=== PATIENT | female | born 1985 | race Caucasian/White ===

== ENCOUNTER 2018-05-31 15:23 | Inpatient (IN) | payer OTHER ==
[2018-05-31] MEDS: LACTATED RINGER'S 1,000 ML IV ×2 (15:45→23:45)
[2018-05-31] MEDS ORDERED: OXYTOCIN 30 UNITS/LR 500 ML IV ×2 (16:00)
[2018-05-31] MEDS ORDERED: METHYLERGONOVINE 0.2 MG INJ IM (16:00)
[2018-05-31] MEDS ORDERED: MISOPROSTOL 200 MCG TAB PR (16:00)
[2018-05-31] MEDS: CEFAZOLIN 2 GM/50 ML (PMX) 50 ML IVPB (16:00)
[2018-05-31] MEDS ORDERED: CARBOPROST 250 MCG INJ IM (16:00)
[2018-05-31 17:48] LABS: ADD MAN DIFF? NO
[2018-05-31 17:51] LABS: BASOPHILS % 0.2 % (0.0-2.0); EOSINOPHILS # 0.1 10^3/ul (0.0-0.5); EOSINOPHILS % 0.4 % (0.0-7.0); HEMATOCRIT 38.3 % (37.0-47.0); HEMOGLOBIN 12.7 g/dl (12.0-16.0); LYMPHOCYTES # 1.4 10^3/ul (0.8-2.9); LYMPHOCYTES % 10.9 % (15.0-51.0); MEAN CORPUSCULAR HEMOGLOBIN 30.2 pg (29.0-33.0); MEAN CORPUSCULAR HGB CONC 33.2 g/dl (32.0-37.0); MEAN CORPUSCULAR VOLUME 91.2 fl (82.0-101.0); MEAN PLATELET VOLUME 11.6 fl (7.4-10.4); MONOCYTE # 0.9 10^3/ul (0.3-0.9); MONOCYTES % 7.2 % (0.0-11.0); NEUTROPHIL # 10.5 10^3/ul (1.6-7.5); NEUTROPHILS % 80.8 % (39.0-77.0); PLATELET COUNT 222 10^3/UL (140-415); RED CELL DISTRIBUTION WIDTH 14.3 % (11.5-14.5)
[2018-05-31 18:10] LABS: INR 0.87; PARTIAL THROMBOPLASTIN TIME 26.4 Sec (23.0-35.0); PROTIME 11.9 Sec (11.9-14.9); PT RATIO 0.9
[2018-05-31 18:59] LABS: HEPATITIS B SURFACE ANTIGEN NEGATIVE (NEGATIVE)
[2018-05-31] MEDS ORDERED: HYDROmorphONE 0.5 MG/0.5 ML SYG IV ×2 (19:00)
[2018-05-31] MEDS ORDERED: ONDANSETRON 4 MG INJ IV ×2 (19:00)
[2018-05-31] MEDS ORDERED: KETOROLAC 30 MG INJ IV (19:00)
[2018-05-31] MEDS ORDERED: NALOXONE (0.4 MG/ML) INJ IV (19:00)
[2018-05-31] MEDS ORDERED: FENTAnyl 50 MCG/ML VIAL IV ×2 (19:00)
[2018-05-31] MEDS ORDERED: ZOLPIDEM 5 MG TAB PO (19:00)
[2018-05-31] MEDS ORDERED: HYDROmorphONE 1 MG/5 ML IV SYRINGE IV ×3 (19:00)
[2018-05-31] MEDS ORDERED: DIPHENHYDRAMINE 50 MG INJ IV (19:00)
[2018-05-31] MEDS ORDERED: morphine SULFATE/PF (10 MG/10 ML) INJ (20:07)
[2018-05-31] MEDS ORDERED: OXYTOCIN 10 UNIT INJ (20:08)
[2018-05-31] MEDS ORDERED: BUPIVACAINE 0.75%/DEXT (SPINAL) 2 ML INJ (20:11)
[2018-05-31 20:49] LABS: AMPHETAMINE/METHAMPHETAMINE Negative (NEGATIVE); BARBITURATES Negative (NEGATIVE); BENZODIAZEPINES Negative (NEGATIVE); CANNABINOIDS Negative (NEGATIVE); COCAINE Negative (NEGATIVE); OPIATES Negative (NEGATIVE)
[2018-05-31] MEDS: FAMOTIDINE 20 MG INJ IV (21:10)
[2018-05-31] MEDS: ONDANSETRON 4 MG INJ IV (21:11)
[2018-05-31] MEDS: METOCLOPRAMIDE 10 MG INJ IV (21:11)
[2018-06-01] MEDS ORDERED: METHYLERGONOVINE 0.2 MG INJ IM (01:30)
[2018-06-01] MEDS ORDERED: OXYTOCIN 30 UNITS/LR 500 ML IV (01:30)
[2018-06-01] MEDS ORDERED: NACL 0.9% 3 ML SYG IV (01:30)
[2018-06-01] MEDS ORDERED: MISOPROSTOL 200 MCG TAB PR (01:30)
[2018-06-01] MEDS ORDERED: CEFAZOLIN 2 GM/50 ML (PMX) 50 ML IVPB (01:30)
[2018-06-01] MEDS ORDERED: CARBOPROST 250 MCG INJ IM (01:30)
[2018-06-01] MEDS: OXYTOCIN 30 UNITS/LR 500 ML IV ×2 (01:42→06:00)
[2018-06-01] MEDS: KETOROLAC 30 MG INJ IV ×2 (03:59→23:47)
[2018-06-01] MEDS: SENNA/DOCUSATE NA (8.6MG/50MG) TAB PO ×2 (09:00→22:02)
[2018-06-01] MEDS: DIPHENHYDRAMINE 50 MG INJ IV (10:06)
[2018-06-01] MEDS: CEFAZOLIN 2 GM/50 ML (PMX) 50 ML IVPB ×3 (10:06→23:05)
[2018-06-01] MEDS: LACTATED RINGER'S 1,000 ML IV ×3 (15:45→23:05)
[2018-06-01 15:59] LABS: RAPID PLASMA REAGIN NONREACTIVE (NR)
[2018-06-01] MEDS: IBUPROFEN 600 MG TAB PO ×2 (19:00→23:47)
[2018-06-01] MEDS: LANOLIN HPA 1 PKT TOP (23:05)
[2018-06-02] MEDS: DIPHENHYDRAMINE 50 MG INJ IV (00:39)
[2018-06-02] MEDS: KETOROLAC 30 MG INJ IV ×2 (05:49→23:45)
[2018-06-02] MEDS: LACTATED RINGER'S 1,000 ML IV (05:50)
[2018-06-02 08:44] LABS: ADD MAN DIFF? NO
[2018-06-02 08:46] LABS: WHITE BLOOD COUNT 12.1 10^3/ul (4.8-10.8)
[2018-06-02 08:46] LABS: BASOPHILS % 0.2 % (0.0-2.0); EOSINOPHILS # 0.2 10^3/ul (0.0-0.5); EOSINOPHILS % 1.2 % (0.0-7.0); HEMATOCRIT 38.1 % (37.0-47.0); HEMOGLOBIN 12.2 g/dl (12.0-16.0); LYMPHOCYTES # 1.1 10^3/ul (0.8-2.9); LYMPHOCYTES % 8.8 % (15.0-51.0); MEAN CORPUSCULAR HEMOGLOBIN 30.2 pg (29.0-33.0); MEAN CORPUSCULAR VOLUME 94.3 fl (82.0-101.0); MEAN PLATELET VOLUME 11.2 fl (7.4-10.4); MONOCYTE # 0.7 10^3/ul (0.3-0.9); NEUTROPHIL # 10.1 10^3/ul (1.6-7.5); NEUTROPHILS % 83.3 % (39.0-77.0); PLATELET COUNT 202 10^3/UL (140-415); RED BLOOD COUNT 4.04 10^6/ul (4.20-5.40); RED CELL DISTRIBUTION WIDTH 14.4 % (11.5-14.5)
[2018-06-02] MEDS: SENNA/DOCUSATE NA (8.6MG/50MG) TAB PO ×2 (10:15→21:33)
[2018-06-02] MEDS: OXYCODONE/ACETAMINOPHEN (5/325) TAB PO (12:40)
[2018-06-03] MEDS: OXYCODONE/ACETAMINOPHEN (5/325) TAB PO (00:08)
[2018-06-03] MEDS: SENNA/DOCUSATE NA (8.6MG/50MG) TAB PO (09:58)
[2018-06-04] MEDS ORDERED: IBUPROFEN 600 MG TAB PO (23:59)
== END 2018-06-03 16:27 | disposition home or self-care (01) | DRG 788 ==
LOC: L-D 15:23 → PP1 06-01 04:50
PROVIDERS: Obstetrics & Gynecology
PROC: 10D00Z1 Extraction of Products of Conception, Low, Open Approach (ICD-10-PCS; principal; 2018-06-01)
DX: O65.5 Obstructed labor due to abnormality of maternal pelvic organs (principal); O34.211 Maternal care for low transverse scar from previous cesarean delivery; Z3A.39 39 weeks gestation of pregnancy; Z37.0 Single live birth
CPT/HCPCS: 80307; 85025; 85610; 85730; 86592; 86850; 86900; 86901; 87340; 99464